=== PATIENT | female | born 2000 | race Caucasian/White ===

== ENCOUNTER 2025-02-26 16:30 | Emergency (ER) | payer OTHER, SELFPAY ==
[2025-02-26 16:35] VITALS: BP 140/101
--- NOTE | 2025-02-26 17:16 | ED.GENMED ---
History of Present Illness
General
Chief Complaint: Abdominal Pain
Source: patient and family
Exam Limitations: none
Time Seen by Provider: 02/26/25 16:55
History of Present Illness
History of Present Illness:
Patient is a 24-year-old female past medical history of ovarian torsion X2 and ovarian tumor status post resection, presenting with nausea and right sided abdominal pain. Patient has been experiencing nausea and right-sided abdominal pain since the
beginning of the year. Patient was recently able to get into see a GI doctor, who ordered a CT scan of the abdomen and pelvis. CT impression shows nonspecific scattered mesenteric lymph nodes projecting at right side of abdomen. The largest lymph
node is 11.7 x 7.3 mm. Patient has an upper endoscopy scheduled for 04/01. Patient has been tolerating a very bland diet recently, oatmeal, granola, Cheerios, bananas. Patient has normal bowel movements once daily in the morning. Patient takes
Pepcid daily as well as antacid as needed for reflux. Patient has had a history of B12 deficiencies for which she used to get B12 shots, and now takes a B12 gummy daily. Of note, 10 years ago patient had 2 episodes of ovarian torsion requiring
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 Patient follows annually with her oncologist at [facility]. Patient has family history of IBS in her sister, and autoimmune disorders including rheumatoid
arthritis in her mother.
Phy Exam
General Physical Exam
General Presentation: well appearing and no apparent distress
General age: appears stated age
General Skin: warm and dry
General Habitus: normal
General Mental: alert
General Hydration: appears well hydrated
Cardiovascular Exam
Cardiovascular Exam: regular rate/rhythm
Heart Sounds: normal
Pulmonary Exam
Pulmonary Exam: lungs clear, no respiratory distress, no crackles and no wheezing
Gastrointestinal Exam
Gastrointestinal Exam: normal bowel sounds, soft, non distended and tender (Very mild tenderness in the right upper quadrant and right lower quadrant.)
Neurological Exam
Neurological Exam: alert and oriented x3
Skin Exam
Skin Exam: normal color and warm/dry
Psychiatric Exam
Psychiatric Exam: normal mood/affect
Course
Orders/Labs/Results
Orders:
Orders
02/26/25 17:29
Test Result ONCE
02/26/25 17:37
Dicyclomine [Bentyl] 20 mg PO NOW STA
Ondansetron Injectable [Zofran] 4 mg IV NOW STA
02/26/25 18:55
B12 [Vitamin B12] Urgent
Complete Blood Count/With Diff Urgent
Comprehensive Metabolic Panel Urgent
Lipase Urgent
02/26/25 19:09
HCG, Urine Qualitative Screen Urgent
Date Specimen was Collected: 02/26/25
Time Specimen was Collected: 17:43
Urinalysis Reflex To Culture Urgent
Date Specimen was Collected: 02/26/25
Time Specimen was Collected: 17:43
Urine Microscopic Reflex Cult Urgent
Urine Culture Urgent
[place] Source: U
Specimen Description:
Date Specimen was Collected: 02/26/25
Time Specimen was Collected: 17:43
Abnormal Lab Results
02/26/25
19:09
Urine Ketones 1+ A
(Negative)
Leukocyte Esterase Rfl 1+ A
(Negative)
Urine Bacteria (Reflex) Few A
(Negative)
02/26/25 18:55
02/26/25 18:55
Vital Signs
Initial and Last Documented VS:
Initial Vital Signs
Temp Pulse Resp BP Pulse Ox
97.9 F 66 16 140/101 100
02/26/25 16:35 02/26/25 16:35 02/26/25 16:35 02/26/25 16:35 02/26/25 16:35
Last Documented Vital Signs
Temp Pulse Resp BP Pulse Ox
97.9 F 62 16 112/73 98
02/26/25 16:35 02/26/25 21:29 02/26/25 18:00 02/26/25 21:29 02/26/25 21:29
MDM/Problems Addressed
Differential Diagnosis Includes:
IBS, Crohn's, reactive lymph nodes
MDM/Problems Addressed:
Given the findings of patient's CT scan on 02/20, we are less inclined to get a CT scan today. Will get blood work including a lipase and B12 level.
Blood work unremarkable. Some improvedment with zofran and bentyl. Will discharge patient with Zofran and Bentyl prescriptions. Reached out to Ele[facility]RT[facility] to schedule an appointment with her. Patient has endoscopy scheduled for 04/01.
*Pulse Oximetry
SaO2: 100
Oxygen Mode of Delivery: Room air
Patient hypoxic: no
*Critical Care Note
Total Time (30-74mins, 75-104mins- exclusive of procedures): Not Applicable
ED Attending Note
-
Portions of this chart may have been created with voice recognition software.� Occasional wrong word or��sound alike� substitutions may have occurred due to the inherent limitations of voice recognition software.
Discharge Plan
Departure
Patient Disposition: Home (Routine Discharge)
Date of Disposition: 02/26/25
Time of Disposition: :23
Patient with high blood pressure during this ER visit?: Yes
Discharge Problem:
Abdominal pain
Instructions: Abdominal Pain, BLOOD PRESSURE
Prescriptions:
New
ondansetron 4 mg tablet,disintegrating
4 mg PO TIDPRN PRN (Reason: nausea/vomiting) Qty: 10 0RF
Rx Instructions:
Please take 1 tab by mouth up to 3 times daily as needed for nausea.
dicyclomine 20 mg tablet
20 mg PO QID Qty: 60 0RF
Rx Instructions:
Take 1 tab by mouth up to 4 times daily as needed for abdominal pain.
Referrals:
Loretta Wolff DO [Family Provider, Family Practice]
Activity Restrictions/Additional Instructions:
We are reaching out to our GI team who will call you to set up an appointment. Please plan for your endoscopy as scheduled on 04/01. We are providing you with the 2 prescriptions. For nausea, please take 1 Zofran tab by mouth up to 3 times daily
as needed. For abdominal pain please take dicyclomine 1 tablet by mouth for up to 4 times daily as needed.
Please also schedule follow-up with your oncologist as recommended.
Interventions
Interventions:
*Risk Screen - Suicide Last Done: 02/26/25 16:35
*General Assessment Last Done: 02/26/25 20:16
*Neglect/Abuse Screening Last Done: 02/26/25 16:35
*ED- Fall Risk Assessment Last Done: 02/26/25 20:16
*Nursing Disposition Last Done: 02/26/25 21:45
BX-Tghbxg-Zymkmmzcfv Assessment Last Done: 02/26/25 18:07
Discharge Date and Time
Discharge Date/Time: 02/26/25 21:45
Print Language: [id number]
[2025-02-26] MEDS: BENTYL 20 MG PO (18:56)
[2025-02-26] MEDS: ZOFRAN 4 MG IV (18:56)
[2025-02-26 19:07] LABS: Hematocrit 41.0 % (37.0-47.0); Hemoglobin 14.2 g/dL (12.0-16.0); Mean Corp Hgb Conc. 34.6 g/dL (33.0-37.0); Mean Corpuscular Volume 83.3 fL (81.0-99.0); Nucleated Red Blood Cells % 0 %; Platelet Count 265 10^3/uL (130-400); Red Cell Dist. Width 12.2 % (11.5-14.5)
[2025-02-26 19:24] LABS: HCG, Urine Qualitative Screen Negative
[2025-02-26 19:35] LABS: Urine Character Clear (Clear)
[2025-02-26 19:38] LABS: ALT (SGPT) 17 U/L (0-35); AST (SGOT) 23 U/L (14-36); Albumin 4.4 g/dl (3.5-5.0); Alkaline Phosphatase 57 U/L (38-126); Blood Urea Nitrogen 13 mg/dl (7-17); Calcium 9.3 mg/dl (8.4-10.2); Carbon Dioxide 22 mmol/L (22-30); Chloride 107 mmol/L (98-107); Glucose 75 mg/dl (70-99); Lipase 88 U/L (23-300); Potassium 4.2 mmol/L (3.5-5.1); Sodium 137 mmol/L (135-145); Total Protein 7.4 g/dl (6.3-8.2); eGFR > 60.00
[2025-02-26 20:13] LABS: Urine Red Blood Cell 0-2 /HPF (0-2); Urine White Cell 0-2 /HPF (0-5)
[2025-02-26 20:28] LABS: Vitamin B12 778 pg/ml (239-931)
[2025-02-26 21:29] VITALS: BP 112/73
== END 2025-02-26 21:45 | disposition home or self-care (01) ==
LOC: EMR 16:30
PROVIDERS: EMERGENCY PHYSICIAN Emergency Medicine; FAMILY PHYSICIAN Family Medicine
DX: R10.9 Unspecified abdominal pain (principal); Z83.79 Family history of other diseases of the digestive system
CPT/HCPCS: 99283; 96374; 80053; 81003; 81015; 81025; 82607; 83690; 85025; 87086